=== PATIENT | female | born 1960 | race African-American/Black ===

== ENCOUNTER 2020-11-28 20:13 | Emergency (ER) | payer OTHER ==
[~2020-11-28] VITALS: Ht 160 cm; Wt 87.2 kg
[~2020-11-28 20:13] MED LIST: CEPH500C57 OR; MEDDOSEPAK PO; MOTRIN800 MG OR
[2020-11-28] MEDS ORDERED: BACTRIM DS1 TAB PO (20:33)
[2020-11-28 20:36] VITALS: BP 190/90
== END 2020-11-28 20:47 | disposition home or self-care (01) | DRG 125 ==
LOC: ED 20:13
DX: H10.32 Unspecified acute conjunctivitis, left eye (principal); J32.9 Chronic sinusitis, unspecified; E11.9 Type 2 diabetes mellitus without complications; I10 Essential (primary) hypertension

== ENCOUNTER 2022-08-29 08:10 | Day surgery (SDC) | payer BC ==
[~2022-08-29] VITALS: Ht 160 cm; Wt 83.9 kg
[~2022-08-29 08:10] MED LIST changes: +BACTRIM DS1 TAB PO; +COZAAR25 MG PO; +GLIPIZIDE XL10 MG PO; +HYDROCHLOROT12.5 M1 PO; +LEVOTHYROXIN137 MCG PO; +METFORMIN500 M2 PO; +ZOCOR20 M1 PO
[2022-08-29 10:41] VITALS: BP 146/72
== END 2022-08-29 10:35 | disposition home or self-care (01) | DRG 951 ==
LOC: ENDO 08:10
PROVIDERS: ATTEND Surgery
PROC: 0DBN8ZX Excision of Sigmoid Colon, Via Natural or Artificial Opening Endoscopic, Diagnostic (ICD-10-PCS; principal; 2022-08-29)
DX: Z12.11 Encounter for screening for malignant neoplasm of colon (principal); D12.5 Benign neoplasm of sigmoid colon; K57.30 Diverticulosis of large intestine without perforation or abscess without bleeding; K64.8 Other hemorrhoids; K64.4 Residual hemorrhoidal skin tags; I10 Essential (primary) hypertension; E11.9 Type 2 diabetes mellitus without complications; Z79.84 Long term (current) use of oral hypoglycemic drugs

== ENCOUNTER 2023-11-15 22:17 | Emergency (ER) | payer OTHER, BC ==
[~2023-11-15] VITALS: Ht 160 cm; Wt 84.0 kg
[2023-11-15] MEDS ORDERED: ACETAMINOPHEN 500 MG TAB PO ONE (22:25)
[2023-11-15] MEDS ORDERED: traMADol HCL 50 MG/TAB PO ONE (22:25)
[2023-11-15] MEDS ORDERED: KETOROLAC TROMETHAMINE 30 MG/ML SDV IV ONE (22:25)
[2023-11-15 22:28] VITALS: BP 177/81
[2023-11-15 22:30] VITALS: BP 169/79
[2023-11-15 23:00] VITALS: BP 161/78
[2023-11-15 23:00] LABS: BASO% 0.6 % (0-3); EOS% 1.9 % (0-8); HEMATOCRIT 36.7 % (37.0-47.0); HEMOGLOBIN 11.6 g/dl (12.0-16.0); IMMATURE GRANULOCYTES 1.1 % (0.0-5.0); LYMPH% 37.7 % (15-41); MEAN CELL VOLUME 80.3 fL CALC (80.0-100.0); MEAN CORPUSCULAR HGB 25.4 pG CALC (26.0-32.0); MEAN CORPUSCULAR HGB CONC 31.6 g/dL CAL (32.0-36.0); MONO% 9.9 % (2-13); NEUT# 3.42 thou/uL (2.00-7.15); NEUT% 48.8 % (42-76); RED BLOOD COUNT 4.57 mill/uL (4.20-5.60); RED CELL DISTRI WIDTH 14.4 % (11.5-15.5)
[2023-11-15 23:18] LABS: ALBUMIN 4.5 g/dL (3.2-5.0); ALKALINE PHOSPHATASE 61 u/l (38-126); ANION GAP 8 (6-22 (CALC)); BILIRUBIN, TOTAL 0.4 mg/dL (0.02-1.3); BUN 15 mg/dL (8-23); BUN/CREATININE RATIO 18 (12-20 (CALC)); CARBON DIOXIDE 26 mmol/l (22-30); CHLORIDE 105 mmol/l (95-108); CREATININE 0.9 mg/dL (0.5-1.0); ESTIMATED GFR 72 ML/MIN (>=90 (CALC)); POTASSIUM 3.9 mmol/l (3.5-5.1); SGOT/AST 28 u/l (9-36); SODIUM 135 mmol/l (137-146); TOTAL PROTEIN 7.7 g/dL (6.3-8.2)
[2023-11-15 23:30] VITALS: BP 171/80
[2023-11-16 00:22] VITALS: BP 171/80
== END 2023-11-16 00:22 | disposition home or self-care (01) | DRG 313 ==
LOC: ED 22:17
PROVIDERS: Family Medicine
DX: R07.89 Other chest pain (principal); I10 Essential (primary) hypertension; E11.9 Type 2 diabetes mellitus without complications; V43.52XA Car driver injured in collision with other type car in traffic accident, initial encounter; Z79.84 Long term (current) use of oral hypoglycemic drugs